=== PATIENT | female | born 1990 | race African-American/Black ===

== ENCOUNTER 2019-10-30 14:25 | Emergency (ER) | payer OTHER ==
--- OUTSIDE RECORDS SUMMARY | 2019-10-30 14:39 | XMS REPORT | Continuity of Care Document ---
:1990 External Reference #:[id number] Author Name MANUELA Cheung (transmitted by agent of provider Monik Little) Address [address] [place] [address] Care Team Providers Name Role Phone Vineet Akhtar MD - Internal Care Team Information [employer] Medicine Abby Oliveros MD - Obstetrics & Care Team Information [employer] Gynecology Problems Active Problems Provider Date Knee pain Onset: 09/30/2017 Morbid obesity Onset: 09/30/2017 Type 2 diabetes mellitus Onset: 08/10/2018 Adjustment disorder with depressed mood Onset: 02/15/2014 Dysfunctional uterine bleeding MANUELA Cheung Onset: 12/21/2018 Picking own skin MANUELA Cheung Onset: 06/01/2019 Essential hypertension MANUELA Cheung Onset: 06/01/2019 Closed fracture of lateral malleolus MANUELA Cheung Onset: 07/06/2019 Social History Type Date Description Comments Sex Unknown Tobacco Use Start: Unknown Never Smoked Cigarettes Smoking Status Reviewed: 07/06/19 Never Smoked Cigarettes ETOH Use Never used alcohol Tobacco Use Start: Unknown Patient has never smoked Recreational Drug Use Never Used Drugs Allergies, Adverse Reactions, Alerts Description No Known Drug Allergies Medications Active Medications SIG Qnty Indications Ordering Provider Date Furosemide 1 by mouth every 30tabs R60.0 Delbert 10/04/2019 20mg Tablets day as needed MD Quin for edema Losartan Potassium 1 by mouth every 30tabs Delbert 06/01/2019 50mg day MD Quin Tablets Ibuprofen take 1 tablet by 100tabs M25.562 Delbert 04/05/2019 800mg Tablets mouth every 8 MD Quin hours with food Metformin HCL Take One Tablet 60tabs E11.9 Delbert 12/21/2018 1000mg By Mouth Twice MD Quin Tablets a day Simvastatin one pill in 90tabs E11.9 Delbert 12/21/2018 10mg evening MD Quin Tablets Multi Adult Gummies 2 by mouth every 90units Delbert 12/14/2018 day MD Quin Chewtabs History Medications Losartan Potassium 1 by mouth 90tabs Delbert Tsai MD 05/01/2019 - every day 06/01/2019 25mg Tablets Immunizations CPT Code Status Date Vaccine Lot # [id number] Given 10/24/2007 Gardasil (HPV) 33663 Given 07/04/2007 Gardasil (HPV) 45879 Given 03/25/2007 Meningitis MCV4 MenACWY Meningococcal Conjugate Vaccine 62069 Given 03/25/2007 Varicella (Chicken Pox) Immunization 68863 Given 03/25/2007 Tdap - Tetanus/Diptheria/Acellular Pertussis 07705 Given 03/25/2007 Gardasil (HPV) 14535 Given 03/25/2007 Hepatitis A Vaccine Pediatric/Adolescent Dosage 2 Dose Schedule 39212 Given 04/06/2001 Varicella (Chicken Pox) Immunization 90508 Given 04/06/2001 Tetanus And Diptheria (Td) For Adult Use Preservative Free 08685 Given 08/08/1997 Hepatitis A Vaccine Pediatric/Adolescent Dosage 2 Dose Schedule 84635 Given 02/24/1995 DTP Vaccine 28105 Given 02/24/1995 Measles Mumps And Rubella MMR 10141 Given 02/24/1995 IPV/Poliomyelitis Immunization 10047 Given 05/07/1992 IPV/Poliomyelitis Immunization 29900 Given 05/07/1992 IPV/Poliomyelitis Immunization 16622 Given 05/07/1992 DTP Vaccine 60657 Given 12/06/1991 Hep B Pediatric/Adolescent 66450 Given 12/06/1991 Measles Mumps And Rubella MMR 97154 Given 05/25/1991 Hep B Pediatric/Adolescent 81528 Given 03/20/1991 Hep B Pediatric/Adolescent 97853 Given 03/20/1991 DTP Vaccine 73527 Given 1990 IPV/Poliomyelitis Immunization 04096 Given 1990 DTP Vaccine 44486 Given 1990 IPV/Poliomyelitis Immunization 56171 Given 1990 DTP Vaccine Vital Signs Date Vital Result Comment 10/04/2019 2:18pm Weight 439.12 lb BP Systolic Sitting 130 mmHg BP Diastolic Sitting 80 mmHg 07/06/2019 1:56pm Weight 443.44 lb w cast BP Systolic Sitting 128 mmHg BP Diastolic Sitting 78 mmHg Results Test Acquired Date Facility Test Result H/L Range Note CBC Auto 09/28/2019 [facility] White Blood 8.0 10^3/uL Normal 3.5-10.[address] [place] [address] [phone] Red Blood Count 5.11 10^6/uL High 3.70-4.87 Hemoglobin 12.9 g/dL Normal 12.0-16.0 Hematocrit 41 % Normal 35-47 Mean Corpuscular Volume 80 fL Normal 80-97 Mean Corpuscular Hemoglobin 25 pg Low 27-31 Mean Corpuscular HGB Conc 32 g/dL Normal 31-36 Red Cell Distribution Width 16 % High 10-15 Platelet Count 233 10^3/uL Normal 150-450 Mean Platelet Volume 9.2 fL Normal 7.4-10.4 Abs Neutrophils 4.5 10^3/uL Normal 1.5-7.7 Abs Lymphocytes 2.7 10^3/uL Normal 1.0-4.8 Abs Monocytes 0.5 10^3/uL Normal 0-0.8 Abs Eosinophils 0.3 10^3/uL Normal 0-0.6 Abs Basophils 0.1 10^3/uL Normal 0-0.2 Abs Nucleated RBC 0.0 10^3/uL Granulocyte % 55.8 % Lymphocyte % 33.9 % Monocyte % 5.8 % Eosinophil % 3.8 % Basophil % 0.7 % Nucleated Red Blood Cells % 0.0 Laboratory test 09/28/2019 [facility] Hemoglobin A1c 6.0 % High 4.0-5.[address] (Glyco HGB) [place] [address] [phone] Basic Metabolic 09/28/2019 [facility] Sodium 141 Normal 135- [address] mmol/[place] [address] [phone] Potassium 4.1 mmol/L Normal 3.5-5.0 Chloride 101 mmol/L Normal 101-111 Co2 Carbon Dioxide 30 mmol/L Normal 22-32 Anion Gap 10 mmol/L Normal 2-11 Glucose 92 mg/dL Normal 70-100 Blood Urea Nitrogen 9 mg/dL Normal 6-24 Creatinine 0.59 mg/dL Normal 0.51-0.95 BUN/Creatinine Ratio 15.3 Normal 8-20 Calcium 9.7 mg/dL Normal 8.6-10.3 Egfr Non- 120.5 >60 Egfr 145.8 >60 2 Basic Metabolic 07/05/2019 [facility] Sodium 139 mmol/L Normal 135-145 Panel [address] [place] [address] [phone] Potassium 4.1 mmol/L Normal 3.5-5.0 Chloride 102 mmol/L Normal 101-111 Co2 Carbon Dioxide 30 mmol/L Normal 22-32 Anion Gap 7 mmol/L Normal 2-11 Glucose 111 mg/dL High 70-100 Blood Urea Nitrogen 8 mg/dL Normal 6-24 Creatinine 0.50 mg/dL Low 0.51-0.95 BUN/Creatinine Ratio 16.0 Normal 8-20 Calcium 8.9 mg/dL Normal 8.6-10.3 Egfr Non- 146.9 >60 Egfr 177.8 >60 3 Laboratory test 07/05/2019 [facility] Hemoglobin A1c 6.2 % High 4.0-5.6 4 finding [address] [facility] (Glyco HGB) [place] [address] [phone] Liver Function 07/05/2019 [facility] Total Protein 6.9 g/dL Normal 6.4-8.9 Panel [address] [place] [address] [phone] Albumin 4.2 g/dL Normal 3.2-5.2 Globulin 2.7 g/dL Normal 2-4 Albumin/Globulin Ratio 1.6 Normal 1-3 Total Bilirubin 0.90 mg/dL Normal 0.2-1.0 Direct Bilirubin 0.20 mg/dL High 0.03-0.18 Indirect Bilirubin 0.7 mg/dL Normal 0.3-1.0 Alkaline Phosphatase 60 U/L Normal 34-104 Alt 34 U/L Normal 7-52 Ast 39 U/L Normal 13-39 Lipid Profile 07/05/2019 [facility] Triglycerides 156 mg/dL 5 (Trig/Chol/HDL) [address] [place] [address] [phone] Cholesterol 113 mg/dL 6 HDL Cholesterol 28.3 mg/dL 7 LDL Cholesterol 54 mg/dL 8 1 Therapeutic target for the treatment of diabetes mellitus patients is <7% HBA1C, and in selective patients <6.0%. Please refer to [place] [employer] diabetic care guidelines for further information. 2 Because ethnic data is not always readily available, this report includes an eGFR for both -Americans and non- Americans. The National Kidney Disease Education Program (NKDEP) does not endorse the use of the MDRD equation for patients that are not between the ages of 18 and 70, are , have extremes of body size, muscle mass, or nutritional status, or are non- or non-. According to the National Kidney Foundation, irrespective of diagnosis, the stage of the disease is based on the level of kidney function: Stage Description GFR(mL/min/1.73 m(2)) 1 Kidney damage with normal or decreased GFR 90 2 Kidney damage with mild decrease in GFR 60-89 3 Moderate decrease in GFR 30-59 4 Severe decrease in GFR 15-29 5 Kidney failure <15 (or dialysis) 3 Because ethnic data is not always readily available, this report includes an eGFR for both -Americans and non- Americans. The National Kidney Disease Education Program (NKDEP) does not endorse the use of the MDRD equation for patients that are not between the ages of 18 and 70, are , have extremes of body size, muscle mass, or nutritional status, or are non- or non-. According to the National Kidney Foundation, irrespective of diagnosis, the stage of the disease is based on the level of kidney function: Stage Description GFR(mL/min/1.73 m(2)) 1 Kidney damage with normal or decreased GFR 90 2 Kidney damage with mild decrease in GFR 60-89 3 Moderate decrease in GFR 30-59 4 Severe decrease in GFR 15-29 5 Kidney failure <15 (or dialysis) 4 Therapeutic target for the treatment of diabetes mellitus patients is <7% HBA1C, and in selective patients <6.0%. Please refer to [place] [employer] diabetic care guidelines for further information. 5 Desirable: <150 Borderline High: 150-199 High: 200-499 Very High: >500 6 Desirable: <200 Borderline High: 200-239 High: >239 7 Low: <40 Desirable: 40-60 High: >60 8 Desirable: <100 Near Optimal: 100-129 Borderline High: 130-159 High: 160-189 Very High: >189 Procedures Description No Information Available Medical Devices Description No Information Available Encounters Type Date Location Provider Dx Diagnosis Office Visit 07/06/2019 [facility] MANUELA Cheung E11.9 Type 2 diabetes 2:00p mellitus without complications I10 Essential (primary) hypertension E66.01 Morbid (severe) obesity due to excess calories S82.64xA Nondisp fx of lateral malleolus of right fibula, init Office Visit 06/01/2019 2:00p [facility] MANUELA Cheung I10 Essential (primary) hypertension E11.9 Type 2 diabetes mellitus without complications Office Visit 04/05/2019 2:30p [facility] MANUELA Cheung E11.9 Type 2 diabetes Care mellitus without complications E66.01 Morbid (severe) obesity due to excess calories M25.562 Pain in left knee Assessments Date Code Description Provider 10/04/2019 E11.9 Type 2 diabetes mellitus without complications MANUELA Cheung 10/04/2019 I10 Essential (primary) hypertension MANUELA Cheung 10/04/2019 E66.01 Morbid (severe) obesity due to excess calories MANUELA Cheung 10/04/2019 R60.0 Edema MANUELA Cheung 10/04/2019 E78.5 Hyperlipidemia MANUELA Cheung 10/04/2019 F41.9 Anxiety MANUELA Cheung 07/06/2019 E11.9 Type 2 diabetes mellitus without complications MANUELA Cheung 07/06/2019 I10 Essential (primary) hypertension MANUELA Cheung 07/06/2019 E66.01 Morbid (severe) obesity due to excess calories MANUELA Cheung 07/06/2019 S82.64xA Nondisplaced fracture of lateral malleolus of right MANUELA Cheung fibula, initial encounter for closed fracture 06/01/2019 I10 Essential (primary) hypertension MANUELA Cheung 06/01/2019 E11.9 Type 2 diabetes mellitus without complications MANUELA Cheung 04/05/2019 E11.9 Type 2 diabetes mellitus without complications MANUELA Cheung 04/05/2019 E66.01 Morbid (severe) obesity due to excess calories MANUELA Cheung 04/05/2019 M25.562 Pain in left knee MANUELA Cheung Plan of Treatment Future Appointment(s):11/21/2019 4:00 pm - Abby Oliveros MD at [facility] [place]/04/2020 1:00 pm - MANUELA Cheung at [facility]10/04/2019 - Rachel Ponce PAE11.9 Type 2 diabetes mellitus without complicationsNew Labs:Basic Metabolic Panel, Ordered: 10/04/19Hemoglobin A1c ( Glyco HGB), Ordered: 10/04/19Urine Microalbumin Random, Ordered: 10/04/19Lipid Profile (Trig/Chol/HDL), Ordered: 10/04/19Liver Function Panel, Ordered: Follow up:1mauvjM54 Essential (primary) ualotkfkkdogV79.01 Morbid (severe) obesity due to excess qnictuulN37.0 EdemaNew Medication:Furosemide 20 mg - 1 by mouth every day as needed for mcgpkU95.5 MosxptvbstagvmW76.9 AnxietyAllImmunizations/Injections:Tdap - Tetanus/Diptheria/Acellular Pertussis Functional Status Functional Condition Comment Date Status Glasses Active Mental Status Description No Information Available Referrals Description No Information Available
[2019-10-30 14:51] VITALS: BP 131/67
--- NOTE | 2019-10-30 15:14 | UC ---
Throat Pain/Nasal Raoul HPI - HPI Summary HPI Summary: 29-year-old female who has had a sore throat since yesterday as well as some drainage and crustiness in her eyes. - History of Current Complaint Chief Complaint: UCRespiratory Stated Complaint: COUGH/THROAT COMP Time Seen by Provider: 10/30/19 14:38 Hx Obtained From: Patient Hx Last Menstrual Period: end of May 2019 ?: No Onset/Duration: Gradual Onset Severity: Mild Pain Intensity: 0 Cough: Nonproductive - Allergies/Home Medications Allergies/Adverse Reactions: Allergies Allergy/AdvReac Type Severity Reaction Status Date / Time No Known Allergies Allergy Verified 10/30/19 14:51 Home Medications: Home Medications Dm/Acetaminophen/Doxylamine [Vicks Nyquil Liquicaps] 1 each PO ONCE PRN [History Confirmed 10/30/19] Dm/Acetaminophen/Doxylamine [Vicks Nyquil Liquicaps] 1 each PO ONCE PRN [History Confirmed 10/30/19] Losartan Potassium [Cozaar] 50 mg PO QAM 10/30/19 [History Confirmed 10/30/19] Simvastatin [Zocor 5 MG-] 10 mg PO QPM 10/30/19 [History Confirmed 10/30/19] metFORMIN* [Glucophage 1000 MG TAB *] 1,000 mg PO BID 10/30/19 [History Confirmed 10/30/19] PMH/Surg Hx/FS Hx/Imm Hx Previously Healthy: Yes - Surgical History Surgical History: Yes Surgery Procedure, Year, and Place: Tooth extractions - Family History Known Family History: Positive: Other - denies FMH conjunctivitis - Social History Occupation: Employed Full-time Alcohol Use: None Substance Use Type: None Smoking Status (MU): Never Smoked Tobacco Review of Systems All Other Systems Reviewed And Are Negative: Yes Eyes: Positive: Drainage, Eye Redness - Both eyes with crustiness this morning however the left eye has continued with redness and some yellowish green pus drainage. ENT: Positive: Sore Throat, Nasal Discharge Is Patient Immunocompromised?: No Physical Exam Triage Information Reviewed: Yes Appearance: Well-Appearing, No Pain Distress, Well-Nourished Vital Signs: Initial Vital Signs Temp 100.2 F 10/30/19 14:40 Pulse 96 10/30/19 14:40 Resp 24 10/30/19 14:40 BP 131/67 10/30/19 14:40 Pulse Ox 97 10/30/19 14:40 Vital Signs Reviewed: Yes Eyes: Positive: Conjunctiva Inflamed - Left conjunctiva and sclera injected with yellowish green was drainage from the left eye. ENT: Positive: Pharyngeal erythema - Mild pharyngeal erythema., Nasal drainage, TMs normal - Left tympanic membrane is mildly injected however has good landmarks and light reflex., Uvula midline Neck: Positive: Supple, Nontender, No Lymphadenopathy Respiratory: Positive: Lungs clear, Normal breath sounds, No respiratory distress, No accessory muscle use Cardiovascular: Positive: RRR, No Murmur, Pulses Normal, Brisk Capillary Refill Musculoskeletal Exam: Normal Neurological Exam: Normal Psychological Exam: Normal Skin Exam: Normal Throat Pain/Nasal Course/Dx - Course Course Of Treatment: Rapid strep test negative I believe the patient has a viral pharyngitis however I'm going to treat her for contact Vitas in the left eye because she said her eyes were both crusted this morning she can treat both eyes if she continues to have symptoms. - Differential Dx/Diagnosis Provider Diagnosis: URI (upper respiratory infection), Pharyngitis, Left conjunctivitis Discharge ED - Sign-Out/Discharge Documenting (check all that apply): Patient Departure All imaging exams completed and their final reports reviewed: No Studies - Discharge Plan Condition: Good Disposition: HOME Prescriptions: Tobramycin 0.3% OPHTH.VIJAY* 1 drop LEFT EYE Q4H 7 Days #1 btl Patient Education Materials: Pharyngitis (ED), Conjunctivitis (ED) Forms: *Work Release Referrals: Rachel Ponce PA [Primary Care Provider] - Additional Instructions: Increase fluids, good handwashing if you touch her face or your eye. Warm saltwater gargles, may take Tylenol every 4 hours and Motrin every 8 hours for pain. Definite follow-up with your primary care provider if no improvement in 3 or 4 days. - Billing Disposition and Condition Condition: GOOD Disposition: Home
== END 2019-10-30 15:21 | disposition home or self-care (01) ==
LOC: UCCORT 14:25
DX: J06.9 Acute upper respiratory infection, unspecified (principal); H10.9 Unspecified conjunctivitis; J02.9 Acute pharyngitis, unspecified
CPT/HCPCS: 87651; 99212; G0463